=== PATIENT | female | born 1950 ===

== ENCOUNTER 2018-08-11 10:25 | Outpatient (CLI) | payer OTHER | END 2018-08-11 10:26 | disposition home or self-care (01) | LOC: C.LAB 10:25 ==

== ENCOUNTER 2018-08-22 12:53 | Outpatient (CLI) | payer OTHER | END 2018-08-22 12:54 | disposition home or self-care (01) | LOC: C.MRIC 12:53 | DX: H91.90 Unspecified hearing loss, unspecified ear (principal); H93.19 Tinnitus, unspecified ear ==